=== PATIENT | female | born 1990 | race American Indian/Alaskan Native ===

== ENCOUNTER 2017-01-19 07:13 | Emergency (ER) | payer MEDICAID, OTHER ==
[2017-01-19 07:42] VITALS: BP 119/81
--- NOTE | 2017-01-19 08:50 | Emergency Department Report ---
HPI - General Chief Complaint: Upper Respiratory Infection Time Seen by Provider: 01/19/17 08:20 - HPI HPI: 26-year-old female presents today with body aches, sore throat, runny nose 4 days. Positive cough with productive green mucous. Patient also complaining of cough associated chest pain. He tried Robitussin, albuterol and Benadryl without relief. Patient states that her daughter has been sick for the past couple weeks, He was diagnosed with strep. He denies fever, chills, nausea, vomiting, chest pain, shortness of breath, abdominal pain. ED Past Medical Hx - Past Medical History Hx Asthma: Yes Additional medical history: sickle cell trait - Surgical History Past Surgical History?: No - Social History Smoking Status: Never Smoker Substance Use Type: None - Medications Home Medications: Home Medications Medication Instructions Recorded Confirmed Last Taken Type ALBUTEROL Inhaler [ProAir HFA 2 puff IH QID PRN #1 inha 01/19/17 Unknown Rx Inhaler] Fluticasone [Flonase] 1 spray NS QDAY #1 bottle 01/19/17 Unknown Rx Naproxen [Naprosyn] 500 mg PO BID #30 tablet 01/19/17 Unknown Rx guaiFENesin/DEXTROMETHORPHAN 1 each PO Q12H #24 tbmp.12hr 01/19/17 Unknown Rx [Mucinex Dm ER 1,200-60 mg Tab] ED Review of Systems ROS: Stated complaint: HEADACHE/SORE THROAT Other details as noted in HPI Constitutional: denies: chills, fever, malaise Eyes: denies: eye pain ENT: throat pain, congestion. denies: ear pain Respiratory: cough. denies: shortness of breath, wheezing Cardiovascular: chest pain (only with cough, none at this time). denies: palpitations Endocrine: no symptoms reported Gastrointestinal: denies: abdominal pain, nausea, vomiting Neurological: denies: headache, weakness Physical Exam - Physical Exam Vital Signs: Vital Signs 01/19/17 07:28 Temperature 98.4 F Pulse Rate 77 Respiratory 19 Rate Blood Pressure 119/81 O2 Sat by Pulse 100 Oximetry Physical Exam: GENERAL: The patient is well-developed and well-nourished. Patient is in NAD. HEAD: Normocephalic. Atraumatic. EYES: PERRL. EARS: External auditory canals and tympanic membranes clear; hearing grossly intact. NOSE: Normal nasal mucosa with no nasal discharge. THROAT: Positive for minimal erythema and tonsillomegaly. No tonsillar exudates noted. NECK: Supple, nontender, without lymphadenopathy. CHEST/LUNGS: Clear to auscultation throughout. HEART/CARDIOVASCULAR: Regular rate and rhythm. No murmurs, rubs or gallops. ABDOMEN: Abdomen is soft, nontender. Bowel sounds normoactive. No guarding or rebound tenderness. EXTREMITIES: Peripheral pulses intact. Capillary refill less than 2 seconds. NEURO: Alert and oriented x 3. Normal gait. ED Course Vital Signs 01/19/17 07:28 Temperature 98.4 F Pulse Rate 77 Respiratory 19 Rate Blood Pressure 119/81 O2 Sat by Pulse 100 Oximetry ED Medical Decision Making - Lab Data Vital Signs 01/19/17 07:28 Temperature 98.4 F Pulse Rate 77 Respiratory 19 Rate Blood Pressure 119/81 O2 Sat by Pulse 100 Oximetry - Radiology Data Radiology results: report reviewed Chest x-ray: PA and lateral views demonstrate the heart and mediastinal contour to be of normal size and shape. The lungs are clear and fully expanded and the soft tissues and bony structures are normal. - Medical Decision Making 26-year-old female presents today with body aches, sore throat, runny nose 4 days. Her rapid strep test is negative. Her chest x-ray is negative. Explained to patient that since she is out of the 48 hour kimberly for full treatment, testing at this time is not necessary. Patient expressed understanding. Patient is in no acute distress at this time. She will be discharged home and is encouraged to follow up with a primary care provider. She will be sent home on Mucinex DM, Flonase, naproxen and is encouraged to return to the emergency room for any worsening symptoms. Critical care attestation.: If time is entered above; I have spent that time in minutes in the direct care of this critically ill patient, excluding procedure time. ED Disposition Clinical Impression: URI (upper respiratory infection) Qualifiers: URI type: unspecified URI Qualified Code(s): J06.9 - Acute upper respiratory infection, unspecified Disposition: DISCHARGED TO HOME OR SELFCARE Is pt being admited?: No Does the pt Need Aspirin: No Condition: Stable Instructions: Upper Respiratory Infection (ED) Additional Instructions: Follow-up with her primary care provider. Return to the emergency department if symptoms worsen. Prescriptions: ALBUTEROL Inhaler [ProAir HFA Inhaler] 2 puff IH QID PRN #1 inha PRN Reason: Shortness Of Breath Fluticasone [Flonase] 1 spray NS QDAY #1 bottle guaiFENesin/DEXTROMETHORPHAN [Mucinex Dm ER 1,200-60 mg Tab] 1 each PO Q12H #24 tbmp.12hr Naproxen [Naprosyn] 500 mg PO BID #30 tablet Referrals: JESS LOYD MD [Primary Care Provider] - 3-5 Days Forms: Work/School Release Form(ED) Time of Disposition: 09:47
--- NOTE | 2017-01-19 09:19 | XRay Report ---
ROUTINE CHEST, TWO VIEWS: PA and lateral views demonstrate the heart and mediastinal contour to be of normal size and shape. The lungs are clear and fully expanded and the soft tissues and bony structures are normal. IMPRESSION: Normal study.
== END 2017-01-19 10:18 | disposition home or self-care (01) ==
LOC: ED 07:13
DX: J06.9 Acute upper respiratory infection, unspecified (principal); J45.909 Unspecified asthma, uncomplicated
CPT/HCPCS: 71020; 87116; 87430; 99283